=== PATIENT | female | born 1990 | race Caucasian/White ===

== ENCOUNTER 2017-05-01 08:00 | Outpatient (CLI) | payer OTHER | END 2017-05-01 08:01 | disposition home or self-care (01) | LOC: LAB.WCP 08:00 | PROVIDERS: ATTEND Physician Assistant Medical | DX: Z30.9 Encounter for contraceptive management, unspecified (principal) | CPT/HCPCS: 36415; 84702 ==

== ENCOUNTER 2017-05-02 07:16 | Outpatient (CLI) | payer OTHER ==
--- NOTE | 2017-05-02 09:49 | Ultrasound Preliminary Report ---
Exam: US TRANSVAGINAL IMPRESSION: 1. Well-formed intrauterine gestational sac with single embryo present 5-5.5 Week size by CRL with lo w heart rate at 84 BPM. Follow-up sonographic assessment recommended in 10-14 days to assess for viab ility. 2. Questionable small remnant of patient's IUD posterior to the gestational sac without complete IUD visible. 3. Unremarkable ovaries and adnexa for age and menstrual status. Results and recommendations discussed directly with the attending clinician Stefan Saldana M.D. by this radiologist at approximately 0920 hrs. RADIA The above findings were discussed with Stefan Saldana M.D. by Dr. Moises Renee at 09:47 hrs on 07/03/16. SITE ID: [id number]
--- NOTE | 2017-05-02 09:59 | Ultrasound Report ---
EXAM: FIRST TRIMESTER OBSTETRIC ULTRASOUND (Less than 11 weeks) EXAM DATE: 05/02/2017 08:47 AM. CLINICAL HISTORY: 27-year-old female with positive urine test with pelvic pain. LMP: 02/13/2017. COMPARISONS: None. TECHNIQUE: Transvaginal ultrasound examination with static and dynamic image documentation on an frank gent basis. CLINICAL DATES: EGA 7 weeks 1 day with BEATA 12/18/2017 based on LMP. ASSESSMENT: Gestational Sac: Single intrauterine well-formed gestational sac with normal amount of fluid. Mean gestational sac diameter: 12.1 mm = 5 weeks 2 days. Embryo: CRL (crown-rump length) 1.8 mm = 5-5.5 weeks. Cardiac activity: 84 beats per minute. Yolk sac: 2.4 mm. Amniotic fluid: Normal for stage of gestation. Early placenta: Not visible at this gestational age. Other: No perigestational fluid collection demonstrated. MATERNAL STRUCTURES: Uterus: Anteverted. Unremarkable. Endometrium: Small linear echogenic focus posterior to the gestational sac, possibly representing a r emnant of the patient's IUD. Complete IUD not visualized. Cervix: Closed. Right Ovary/Adnexa: Unremarkable. The ovary measures 2.8 x 1.5 x 1.3 cm, volume 2.8 cc. Left Ovary/Adnexa: Hemorrhagic corpus luteum cyst 1.7 cm in diameter. The ovary measures 3.4 x 2.3 x 1.8 cm, volume 7.3 cc. Free Fluid: None. Other: None. IMPRESSION: 1. Well-formed intrauterine gestational sac with single embryo present 5-5.5 week size by CRL with lo w heart rate at 84 BPM. Follow-up sonographic assessment recommended in 10-14 days to assess for viab ility. 2. Questionable small remnant of patient's IUD posterior to the gestational sac without complete IUD visible. 3. Unremarkable ovaries and adnexa for age and menstrual status. Results and recommendations discussed directly with the attending clinician, Stefan Saldana M.D., by this radiologist at approximately 0920 hrs. LOCO Referring Provider Line: [phone] SITE ID: [id number]
== END 2017-05-02 07:17 | disposition home or self-care (01) ==
LOC: DI 07:16
PROVIDERS: ATTEND Family Medicine
DX: O26.891 Other specified pregnancy related conditions, first trimester (principal); R10.2 Pelvic and perineal pain; Z97.5 Presence of (intrauterine) contraceptive device
CPT/HCPCS: 76830

== ENCOUNTER 2017-05-08 10:19 | Outpatient (CLI) | payer OTHER ==
--- NOTE | 2017-05-08 12:07 | MRI Report ---
EXAM: MR PELVIS WITHOUT CONTRAST EXAM DATE: 05/08/2017 11:17 AM. CLINICAL HISTORY: Approximately 7.5 weeks . Check for displaced IUD. COMPARISON: Early OB ultrasound 05/02/2017. TECHNIQUE: Multiplanar T1 and T2 sequences obtained through the pelvis on an MR scanner. No IV contra st. FINDINGS: Uterus: Mildly retroflexed/retroverted with arcuate configuration. An intrauterine gestational sac in expected position. A triangular hypoechoic area in the myometrium anteriorly subjacent to the site o f implantation. No suggestion of retained IUD. No fibroid. Cervix: Unremarkable. Right Ovary: Unremarkable and measures 2 x 1.1 x 2.3 cm. No cyst by size criteria. Left Ovary: Unremarkable, 2.4 x 1.4 x 2.6 cm. No cyst by size criteria. Bladder: Partially contracted, otherwise unremarkable. Other: No apparent foreign body suggestive of extruded IUD in the adnexal regions or pelvis. No free fluid or focal inflammatory process identified. IMPRESSION: 1. No IUD evident in the uterus and pelvic cavity. Consider single AP view of pelvis, if clinically w arranted. 2. Mildly retroverted/retroflexed uterus with intrauterine gestational sac consistent with early preg bishop. 3. Unremarkable ovaries. No free fluid. Findings discussed with Dr. Khan at 11:50 AM. RADIA Referring Provider Line: [phone] SITE ID: [id number]
== END 2017-05-08 10:20 | disposition home or self-care (01) ==
LOC: DI 10:19
PROVIDERS: ATTEND Obstetrics & Gynecology
DX: T83.32XD Displacement of intrauterine contraceptive device, subsequent encounter (principal)
CPT/HCPCS: 72195

== ENCOUNTER 2017-05-18 08:00 | Outpatient (CLI) | payer OTHER ==
[2017-05-18 18:57] LABS: BILIRUBIN,URINE NEGATIVE (NEGATIVE); GLUCOSE, URINE (UA) NEGATIVE (NEGATIVE); KETONES,URINE (UA) NEGATIVE (NEGATIVE); LEUKOCYTE ESTERASE, URINE NEGATIVE (NEGATIVE); NITRITE,URINE NEGATIVE (NEGATIVE); OCCULT BLOOD,URINE NEGATIVE (NEGATIVE); PROTEIN,URINE NEGATIVE (NEGATIVE); UROBILINOGEN,URINE 0.2 (NORMAL) E.U./dL (NORMAL)
[2017-05-18 18:58] LABS: CLARITY,URINE CLEAR (CLEAR)
[2017-05-18 19:06] LABS: BACTERIA,URINE None Seen /HPF (None Seen); RBC,URINE None Seen /HPF (0-5); SQUAMOUS EPITHELIAL CELL,UR MOD Squamous (<= Few)
[2017-05-18 19:12] LABS: BASOPHILS % (AUTO) 0.3 %; EOSINOPHILS # (AUTO) 0.1 10^3/uL (0.0-0.7); EOSINOPHILS % (AUTO) 0.6 %; HGB - HEMOGLOBIN 13.2 g/dL (12.0-16.0); LYMPHOCYTES # (AUTO) 3.5 10^3/uL (1.5-3.5); LYMPHOCYTES % (AUTO) 27.4 %; MEAN CORPUSCULAR HEMOGLOBIN 30.7 pg (27.0-31.0); MEAN CORPUSCULAR HGB CONC 33.4 g/dL (32.0-36.0); MEAN PLATELET VOLUME 9.6 fL (7.9-10.8); MONOCYTES # (AUTO) 0.9 10^3/uL (0.0-1.0); MONOCYTES % (AUTO) 7.1 %; NEUTROPHILS # (AUTO) 8.2 10^3/uL (1.5-6.6); NEUTROPHILS % (AUTO) 64.6 %; PLT - PLATELET COUNT 240 10^3/uL (130-450); RED BLOOD COUNT 4.32 10^6/uL (4.20-5.40); RED CELL DISTRIBUTION WIDTH 12.9 % (12.0-15.0); WHITE BLOOD COUNT 12.6 x10^3/uL (4.8-10.8)
[2017-05-19 13:17] LABS: HEPATITIS B SURFACE ANTIGEN NON-REACTIVE (NON-REACTIVE)
[2017-05-19 14:17] LABS: HIV AG/AB 4TH GEN NON-REACTIVE (NON-REACTIVE)
== END 2017-05-18 08:01 | disposition home or self-care (01) ==
LOC: LAB.N 08:00
PROVIDERS: ATTEND Obstetrics & Gynecology
DX: Z34.81 Encounter for supervision of other normal pregnancy, first trimester (principal); Z13.79 Encounter for other screening for genetic and chromosomal anomalies
CPT/HCPCS: 36415; 81001; 81599; 85025; 86762; 86850; 86900; 86901; 87340; 87389

== ENCOUNTER 2017-07-06 08:00 | Outpatient (CLI) | payer OTHER | END 2017-07-06 08:01 | disposition home or self-care (01) | LOC: LAB.N 08:00 | PROVIDERS: ATTEND Obstetrics & Gynecology | DX: Z36.0 Encounter for antenatal screening for chromosomal anomalies (principal) | CPT/HCPCS: 36415; 81599; 82105; 82677; 84163; 84702; 86336 ==

== ENCOUNTER 2017-07-07 08:00 | Outpatient (CLI) | payer SELFPAY | END 2017-07-07 23:59 | disposition home or self-care (01) | LOC: LAB.R 08:00 | PROVIDERS: ATTEND Obstetrics & Gynecology | DX: N89.8 Other specified noninflammatory disorders of vagina (principal) | CPT/HCPCS: 87480; 87510; 87660 ==

== ENCOUNTER 2017-08-05 07:40 | Outpatient (CLI) | payer OTHER ==
--- NOTE | 2017-08-06 10:25 | Ultrasound Report ---
OB ULTRASOUND: 08/05/2017 CLINICAL INDICATION: Anatomy. TECHNIQUE: Real-time scanning was performed with route sales representative static images obtained. LAST MENSTRUAL PERIOD 03/13/2017 Clinical Age 20 weeks 5 days US Age 19 weeks 5 days EFW Hadlock 327 g EFW% Hadlock 15% Heart Rate 146 bpm EDC 12/18/2017 US EDC 12/25/2017 BPD Hadlock 19 weeks 2 days; Mean mm 44.0 HC Hadlock 19 weeks 4 days; Mean mm 168.7 AC Hadlock 20 weeks 0 days; Mean mm 147.7 FL Hadlock 20 weeks 1 day; Mean mm 32.6 Presentation cephalic Placental Location anterior Cervical Length 3.8 cm Amniotic Fluid 3.7 cm FINDINGS: There is a single viable intrauterine gestation, in cephalic presentation. heart rate is 146 BPM. The placenta is anterior, and demonstrates placenta previa, with the placenta terminating at the internal os. Placental cord insertion is central. Amniotic fluid volume is subjectively normal, with a deepest vertical pocket of 3.7 cm. By size, the fetus measures 19 weeks 5 days (20 weeks 5 days by LMP). The following anatomic structures were visualized and appear normal: The intracranial contents, including the ventricles and posterior fossa; the lips and orbits; the spine; the heart, including 4 chamber view and outflow tracts, and diaphragm; the abdominal contents, including the stomach, the bilateral kidneys, and urinary bladder, as well as a normal 3 vessel cord insertion; 4 limbs. There is an isolated right choroid plexus cyst, measuring 7 mm. No other sequelae of trisomy 18 observed. Normal configuration of the feet. No evidence of micrognathia or calvarial deformity, open hands observed. No free fluid or adnexal lesion is appreciated. IMPRESSION 1. SINGLE VIABLE INTRAUTERINE GESTATION, WITH EXPECTED GROWTH FROM A PREVIOUS SONOGRAM. 2. ISOLATED SUBCENTIMETER CHOROID PLEXUS CYST. OTHERWISE, UNREMARKABLE SURVEY WITH NO ANATOMIC ABNORMALITIES SEEN. 3. PLACENTA PREVIA, WITH THE PLACENTA TERMINATING AT THE INTERNAL OS. RECOMMEND FOLLOWUP ULTRASOUND AT OR BEFORE 32 WEEKS TO ASSESS FOR RESOLUTION AND TO EXCLUDE VASA PREVIA. MTDD
== END 2017-08-05 07:41 | disposition home or self-care (01) ==
LOC: DI 07:40
PROVIDERS: ATTEND Obstetrics & Gynecology
DX: Z36.9 Encounter for antenatal screening, unspecified (principal)
CPT/HCPCS: 76811

== ENCOUNTER 2017-08-11 12:23 | Outpatient (CLI) | payer SELFPAY | END 2017-08-11 12:24 | disposition home or self-care (01) | LOC: LAB 12:23 | DX: Z01.89 Encounter for other specified special examinations (principal); O35.1XX0 Maternal care for (suspected) chromosomal abnormality in fetus, not applicable or unspecified | CPT/HCPCS: 36415 ==

== ENCOUNTER 2017-09-25 08:08 | Outpatient (CLI) | payer OTHER ==
[2017-09-25 09:59] LABS: HGB - HEMOGLOBIN 11.1 g/dL (12.0-16.0); MEAN CORPUSCULAR HEMOGLOBIN 31.5 pg (27.0-31.0); MEAN CORPUSCULAR HGB CONC 34.1 g/dL (32.0-36.0); MEAN CORPUSCULAR VOLUME 92.3 fL (81.0-99.0); MEAN PLATELET VOLUME 8.6 fL (7.9-10.8); RED BLOOD COUNT 3.53 10^6/uL (4.20-5.40); RED CELL DISTRIBUTION WIDTH 13.5 % (12.0-15.0); WHITE BLOOD COUNT 12.1 x10^3/uL (4.8-10.8)
== END 2017-09-25 08:09 | disposition home or self-care (01) ==
LOC: LAB 08:08
PROVIDERS: ATTEND Obstetrics & Gynecology
DX: Z34.90 Encounter for supervision of normal pregnancy, unspecified, unspecified trimester (principal)
CPT/HCPCS: 36415; 82950; 85027; 86850

== ENCOUNTER 2017-10-23 08:38 | Outpatient (CLI) | payer OTHER ==
--- NOTE | 2017-10-23 13:03 | Ultrasound Report ---
Procedure Date: 10/23/2017 Accession Number: [id number] / [id number] Procedure: US - OB F/U or Repeat CPT Code: FULL RESULT: EXAM: OB F/U or Repeat DATE: 10/23/2017 10:35 AM CLINICAL HISTORY: ENCOUNTER FOR SCREENING,UNSPECIFIED. Reevaluate placenta. TECHNIQUE: Real-time scanning was performed with entry level sales representative static images obtained. COMPARISON: None LAST MENSTRUAL PERIOD: 03/23/2017 Clinical Age: 30 weeks 4 days US Age: 31 weeks 4 days EFW Hadlock: 1928 grams EFW % Hadlock: 73% Heart Rate: 142 bpm EDC: 12/28/2017 US EDC: 12/21/2017 BPD Hadlock: 31 weeks 2 days; Mean mm 78 HC Hadlock: 31 weeks 0 days; Mean mm 282 AC Hadlock: 32 weeks 5 days; Mean mm 286 FL Hadlock: 32 weeks 2 days; Mean mm 62 Presentation: Transverse with head to maternal right Placental Location: Anterior Cervical Length: cm Amniotic Fluid: THERESA 18.4 cm FINDINGS: There is a single viable intrauterine gestation, in transverse lie. heart rate is 142 BPM. The placenta is anterior. Previously noted previa has resolved, with the placenta now 5 cm from the internal os. Previously noted choroid plexus cyst is resolved. IMPRESSION: Resolution of placenta previa, with the anterior placenta now 5 cm from the internal os. Expected growth. Resolution of previously seen choroid plexus cyst.
== END 2017-10-23 08:39 | disposition home or self-care (01) ==
LOC: DI 08:38
PROVIDERS: ATTEND Obstetrics & Gynecology
DX: Z36.9 Encounter for antenatal screening, unspecified (principal)
CPT/HCPCS: 76816